=== PATIENT | female | born 1970 | race Caucasian/White ===

== ENCOUNTER 2018-08-07 09:04 | Emergency (ER) | payer OTHER ==
[2018-08-07 09:12] VITALS: TEMP 99.2; BMI 31.8
--- NOTE | 2018-08-07 09:17 | PDOC ---
History of Present Illness - General Chief Complaint: Palpitations Stated Complaint: EMPLOYEE, PALPITATIONS Time Seen by Provider: 08/07/18 09:16 History Source: Patient Exam Limitations: No Limitations - History of Present Illness Initial Comments: 08/07/18 09:45 The patient is a 48F with no PMH who presents to the ER with complaints of palpitations. The patient states that she was watching TV 2 days ago when she developed palpitations as she was sitting down. She states that they lasted for "a few seconds" and then went away. She denies any CP, fever, chills, nausea, vomiting, cough but admits to mild SOB. She has never had this happen before. She admits to 1 cup of coffee in the morning, no energy drinks, and no illicit drug use. She admits to increased stressors. Past History - Past Medical History Allergies/Adverse Reactions: Allergies Allergy/AdvReac Type Severity Reaction Status Date / Time No Known Allergies Allergy Verified 01/19/16 16:57 Home Medications: Ambulatory Orders NK [No Known Home Medication] 08/07/18 COPD: No GI Disorders: Yes (gallstones) Disorders: Yes (H/O kidney stones) - Surgical History Cholecystectomy: Yes - Immunization History Immunization Up to Date: Yes - Suicide/Smoking/Psychosocial Hx Smoking History: Never smoked Hx Alcohol Use: No Drug/Substance Use Hx: No Review of Systems - Review of Systems Able to Perform ROS?: Yes Comments:: 08/07/18 09:54 GENERAL/CONSTITUTIONAL: No fever or chills. No weakness. HEAD, EYES, EARS, NOSE AND THROAT: No change in vision. No ear pain or discharge. No sore throat. CARDIOVASCULAR: Positive for palpitations. No chest pain or lightheadedness. RESPIRATORY: Positive for mild SOB. No cough, wheezing, or hemoptysis. GASTROINTESTINAL: No nausea, vomiting, diarrhea, constipation, or abdominal pain. GENITOURINARY: No dysuria, frequency, hematuria, or change in urination. MUSCULOSKELETAL: No joint or muscle swelling or pain. No neck or back pain. SKIN: No rash or lesions. NEUROLOGIC: No headache, numbness, tingling, focal weakness, loss of consciousness, or change in strength/sensation. ENDOCRINE: No increased thirst. No abnormal weight change. HEMATOLOGIC/LYMPHATIC: No anemia, easy bleeding, or history of blood clots. ALLERGIC/IMMUNOLOGIC: No hives or skin allergy. Is the patient limited Lithuanian proficient: No *Physical Exam - Vital Signs Last Vital Signs Temp Pulse Resp BP Pulse Ox 99.2 F 76 18 153/91 99 08/07/18 09:08 08/07/18 09:08 08/07/18 09:08 08/07/18 09:08 08/07/18 09:08 Heart Score/ECG Review #1 General ECG Interpretation: Sinus Rhythm, Normal Rate, Normal Intervals, No acute ischemic changes Compared to previous ECG there are: Changes noted 08/07/18 09:56 NSR vent rate 75 DC 152 QRS 96 QTc 419 Incomplete RBBB No STD or ELSY No signs of acute ischemia C/w prior in 2012 ED Treatment Course - LABORATORY CBC & Chemistry Diagram: 08/07/18 09:45 08/07/18 10:00 Medical Decision Making - Medical Decision Making 08/07/18 09:57 THe patient is a 48F with no PMH who presents with palpitations. Concern for ACS vs underlying arrhythmia. EKG unremarkable. C/w 2012 she has a new incomplete RBBB. Pending labs and CXR. PERC negative. Pt will likely require outpt cardiology f/u with new incomplete RBBB. 08/07/18 10:32 Preliminary read of CXR is negative for acute pathology. 08/07/18 10:56 Labs WNL including trop and TSH. Will d/c with PCP and cardiology f/u. *DC/Admit/Observation/Transfer Diagnosis at time of Disposition: Palpitations - Discharge Dispostion Disposition: HOME Condition at time of disposition: Stable Decision to Admit order: No - Referrals Referrals: Willian Patino MD [Staff Physician] - Lakshmi Herbert MD [Staff Physician] - - Patient Instructions Printed Discharge Instructions: DI for Palpitations Additional Instructions: Por favor, anika un seguimiento con garcia mdico de atencin primaria en 2-3 cobian. Por favor, siga con el Dr. Patino dentro de 1 semana. Por favor regrese a la cassidy de emergencia si tiene signos o sntomas de dolor en el pecho, dificultad para respirar, fiebre incontrolable, escalofros, nuseas, vmitos, entumecimiento, hormigueo o debilidad en cualquier parte de garcia cuerpo, cambios en la visin o dificultad para hablar. Por favor regrese a la cassidy de emergencias si los sntomas persisten, empeoran o surgen nuevos sntomas. Please follow up with your primary care physician in 2-3 days. Please follow up with Dr. Patino within 1 week. Please return to the ER if you have any signs or symptoms of chest pain, shortness of breath, uncontrollable fever, chills, nausea, vomiting, numbness, tingling, or weakness in any part of your body, changes in vision, or slurred speech. Please return to the ER if symptoms persist, worsen, or new symptoms arise. Print Language: BANGLADESHI - Post Discharge Activity
[2018-08-07 09:54] LABS: BASO % 0.5 % (0-2.0); EOS % 1.5 % (0-4.5); HEMATOCRIT 44.3 % (32.4-45.2); HEMOGLOBIN 14.8 GM/dL (10.7-15.3); LYMPH % 25.3 % (8-40); MCH 30.9 pg (25.7-33.7); MCHC 33.4 g/dl (32.0-36.0); MEAN CELL VOLUME 92.4 fl (80-96); MEAN PLT VOLUME 7.9 fl (7.5-11.1); MONO % 9.4 % (3.8-10.2); NEUT % 63.3 % (42.8-82.8); PLATELET COUNT 267 K/MM3 (134-434); RBC 4.79 M/mm3 (3.60-5.2); RDW 12.6 % (11.6-15.6); WHITE BLOOD COUNT 8.8 K/mm3 (4.0-10.0)
[2018-08-07 10:11] LABS: INR 0.93 (0.83-1.09); PROTHROMBIN TIME (PATIENT) 10.5 SEC (9.7-13.0)
[2018-08-07 10:25] LABS: ALBUMIN 3.7 g/dl (3.4-5.0); ANION GAP 8 MMOL/L (8-16); BILIRUBIN,TOTAL 0.5 mg/dL (0.2-1.0); BLOOD UREA NITROGEN 15 mg/dL (7-18); CALCIUM 9.2 mg/dL (8.5-10.1); CHLORIDE 108 mmol/L (98-107); CO2 24 mmol/L (21-32); CREATININE 0.7 mg/dL (0.55-1.02); GLUCOSE,RANDOM 123 mg/dL (74-106); POTASSIUM 3.9 mmol/L (3.5-5.1); SGOT/AST 15 U/L (15-37); SGPT/ALT 36 U/L (13-61); SODIUM 140 mmol/L (136-145); TOT PROT 7.5 g/dl (6.4-8.2)
[2018-08-07 10:27] LABS: ALK PHOS 89 U/L (45-117)
[2018-08-07 11:19] VITALS: BP 116/79; PULSE 75
--- NOTE | 2018-08-07 12:56 | PDOC ---
Attending Attestation - Resident Resident Name: Ezra Bee - ED Attending Attestation I have performed the following: I have examined & evaluated the patient, The case was reviewed & discussed with the resident, I agree w/resident's findings & plan, Exceptions are as noted - HPI HPI: 08/07/18 12:54 Agree with residents HPI - Physicial Exam PE: 08/07/18 12:54 Agree with residents PE - Medical Decision Making 08/07/18 12:57 48 y/o no PMH presents with palpitations no chest pain. Heart score 1 nonischemic EKG troponin negative TSH normal. PERC negative for PE. No acute findings on patient's physical exam laboratory analysis within normal limits patient will follow up with cardiology this week small right bundle- branch block noted on EKG discussed with patient and she will follow-up with cardiology. Findings, need for follow-up and strict return instructions discussed with patient. Heart Score/ECG Review - History History: Slightly suspicious - Electrocardiogram EKG: Normal - Age Age: 45-65 - Risk Factors Based on the list above the patient has:: No risk factors known - Troponin Troponin: </= normal limit - Score Heart Score - Total: 1 - ECG Impressions Comment:: 08/07/18 12:54 EKG performed at 920 demonstrates normal sinus rhythm incomplete right bundle- branch block and no ST elevations or T-wave inversions. Interpreted by me.
--- NOTE | 2018-08-07 15:37 | EKG ---
Test Reason : Blood Pressure : / mmHG Vent. Rate : 070 BPM Atrial Rate : 070 BPM P-R Int : 152 ms QRS Dur : 096 ms QT Int : 388 ms P-R-T Axes : 051 -25 051 degrees QTc Int : 419 ms NORMAL SINUS RHYTHM INCOMPLETE RIGHT BUNDLE BRANCH BLOCK POSSIBLE INFERIOR INFARCT (CITED ON OR BEFORE 24-MAR-2013) ABNORMAL ECG WHEN COMPARED WITH ECG OF 24-MAR-2013 08:50, INCOMPLETE RIGHT BUNDLE BRANCH BLOCK IS NOW PRESENT Confirmed by COLTEN CARLOS MD ([id number]) on 08/07/2018 3:36:56 PM Referred By: Confirmed By:COLTEN CARLOS MD
== END 2018-08-07 11:19 | disposition home or self-care (01) ==
LOC: JER 09:04
DX: R00.2 Palpitations (principal)
CPT/HCPCS: 36415; 71046-TC-FY; 80053; 82550; 84443; 84484; 84703; 85025; 85610; 93005; 93010; 99284-25

== ENCOUNTER 2018-09-19 19:03 | Emergency (ER) | payer OTHER ==
[2018-09-19 19:12] VITALS: BMI 31.8
--- NOTE | 2018-09-19 19:15 | PDOC ---
Rapid Medical Evaluation Time Seen by Provider: 09/19/18 19:11 Medical Evaluation: Allergies Allergy/AdvReac Type Severity Reaction Status Date / Time No Known Allergies Allergy Verified 01/19/16 16:57 09/19/18 19:11 Pt presents to the ED for high blood pressure. Pt states she has been taking it at home and it was 158/100 and 160/98. Currently she admits to palpitations and had a headache earlier this morning. Surgical HX: hysterectomy Exam: BP 199/90, RRR Orders: Labs, EKG, IV Pt to proceed to ED for further evaluation Discharge Disposition - Diagnosis Palpitations Hypertension Qualifiers: Hypertension type: unspecified Qualified Code(s): I10 - Essential (primary) hypertension - Referrals - Patient Instructions - Post Discharge Activity
[2018-09-19] MEDS ORDERED: NITROGLYCERIN SUBLINGUAL 1/150 0.4 MG TAB SL ONE (19:34)
[2018-09-19] MEDS ORDERED: ACETAMINOPHEN 325 MG TABLET (FP) PO ONE (19:35)
[2018-09-19] MEDS ORDERED: VALSARTAN 40 MG TABLET (FP) PO ONE (19:44)
--- NOTE | 2018-09-19 19:45 | PDOC ---
Attending Attestation - Resident Resident Name: DanielMoni - ED Attending Attestation I have performed the following: I have examined & evaluated the patient, The case was reviewed & discussed with the resident, I agree w/resident's findings & plan <Viviana Gutierres - Last Filed: 09/19/18 19:44> - HPI HPI: 09/19/18 19:55 The patient is a 48-year-old female with past medical history significant for elevated cholesterol (diagnosed 2 months ago) presents to the emergency department with elevated blood pressure and palpitations. The patient reports shes been checking her blood pressure at home, which was noted to be elevated systolic to the 150-160 and diastolic to the 100s. The patient reports associated symptoms of a headache. The patient was seen at the ED couple of weeks prior for palpitations, was scheduled to follow up with a tableau report developer. The patient reports she has an appointment with Dr. Patino on Saturday. Denies chest pain, shortness of breath, leg swelling, blurry vision, hx of elevated blood pressure. Allergies: NKA Social history: Patient is an employee at [employer]. No past or present use of tobacco, alcohol or recreational drugs. Surgical history: Hysterectomy PCP: Dr. Sidney Herbert. - Physicial Exam PE: 09/19/18 19:56 GENERAL: (+) Overweight, afebril. Awake, alert, and fully oriented, in no acute distress HEAD: No signs of trauma EYES: PERRLA, EOMI, sclera anicteric, conjunctiva clear ENT: Auricles normal inspection, hearing grossly normal, nares patent, oropharynx clear without exudates. Moist mucosa NECK: Normal ROM, supple, no lymphadenopathy, JVD, or masses LUNGS: Breath sounds equal, clear to auscultation bilaterally. No wheezes, and no crackles HEART: Pulse regular. Regular rate and rhythm, normal S1 and S2, no murmurs, rubs or gallops ABDOMEN: Soft, nontender, no flank pain, normoactive bowel sounds. No guarding , no rebound. No masses EXTREMITIES: Moving all extremity. Normal range of motion, no edema. No clubbing or cyanosis. No cords, erythema, or tenderness NEUROLOGICAL: Cranial nerves II through XII grossly intact. Normal speech, normal gait SKIN: Warm, Dry, normal turgor, no rashes or lesions noted. - Medical Decision Making 09/19/18 19:56 Documentation prepared by Shannen Vanegas, acting as medical device assembler for Viviana Gutierres MD. <Shannen Vanegas - Last Filed: 09/19/18 20:18>
--- NOTE | 2018-09-19 19:48 | PDOC ---
History of Present Illness - General Chief Complaint: Blood Pressure Problem Stated Complaint: BLOOD PRESSURE PROBLEM Time Seen by Provider: 09/19/18 19:11 History Source: Patient - History of Present Illness Initial Comments: 09/19/18 20:34 This is a 48 year old female with no significant past medical history, who presents with palpitations and elevated blood pressure taken at home, 160/90. Patient states that she has been taking her blood pressure at home and it has remained elevated. She endorses slight headache at home that has now resolved. She denies blurry vision, diaphoresis, chest pain, shortness of breath, leg swelling. Palpitations are intermittent, at rest and with exertion. She was recently here at [facility] for the same symptoms, ancillary studies negative for acute pathology. She has a follow up appointment with Dr. Patino on Saturday. PMHx: palpitations ROS: as noted Surgical hx: hysterectomy, kidney stone removal, cholecystectomy Social hx: denies alcohol, tobacco Allergies: none Past History - Past Medical History Allergies/Adverse Reactions: Allergies Allergy/AdvReac Type Severity Reaction Status Date / Time No Known Allergies Allergy Verified 09/19/18 19:12 Home Medications: Ambulatory Orders Valsartan [Diovan] 40 mg PO DAILY #30 tablet 09/19/18 COPD: No GI Disorders: Yes (gallstones) Disorders: Yes (H/O kidney stones) - Surgical History Abdominal Surgery: Yes Cholecystectomy: Yes - Immunization History Immunization Up to Date: Yes - Suicide/Smoking/Psychosocial Hx Smoking History: Never smoked Hx Alcohol Use: No Drug/Substance Use Hx: No Review of Systems - Review of Systems Comments:: 09/19/18 20:40 ROS: GENERAL/CONSTITUTIONAL: No fever or chills. No weakness. HEAD, EYES, EARS, NOSE AND THROAT: No change in vision. No ear pain or discharge. No sore throat. CARDIOVASCULAR: No chest pain or shortness of breath, +palpitations RESPIRATORY: No cough, wheezing, or hemoptysis. GASTROINTESTINAL: No nausea, vomiting, diarrhea or constipation. GENITOURINARY: No dysuria, frequency, or change in urination. MUSCULOSKELETAL: No joint or muscle swelling or pain. No neck or back pain. SKIN: No rash NEUROLOGIC: No headache, vertigo, loss of consciousness, or change in strength/ sensation. ENDOCRINE: No increased thirst. No abnormal weight change HEMATOLOGIC/LYMPHATIC: No anemia, easy bleeding, or history of blood clots. ALLERGIC/IMMUNOLOGIC: No hives or skin allergy. *Physical Exam - Vital Signs Last Vital Signs Temp Pulse Resp BP Pulse Ox 98.6 F 72 18 199/90 H 99 09/19/18 19:10 09/19/18 19:10 09/19/18 19:10 09/19/18 19:10 09/19/18 19:10 - Physical Exam Comments: 09/19/18 20:41 PE: GENERAL: Awake, alert, and fully oriented, in no acute distress HEAD: No signs of trauma, normocephalic, atraumatic EYES: PERRLA, EOMI, sclera anicteric, conjunctiva clear ENT: Auricles normal inspection, hearing grossly normal, nares patent, oropharynx clear without exudates. Moist mucosa NECK: Normal ROM, supple, no lymphadenopathy, JVD, or masses LUNGS: No distress, speaks full sentences, clear to auscultation bilaterally HEART: Regular rate and rhythm, normal S1 and S2, no murmurs, rubs or gallops, peripheral pulses normal and equal bilaterally. ABDOMEN: Soft, nontender, normoactive bowel sounds. No guarding, no rebound. No masses EXTREMITIES : Normal inspection, Normal range of motion, no edema. No clubbing or cyanosis. NEUROLOGICAL: Cranial nerves II through XII grossly intact. Normal speech, normal gait, no focal sensorimotor deficits SKIN: Warm, Dry, normal turgor, no rashes or lesions noted ED Treatment Course - LABORATORY CBC & Chemistry Diagram: 09/19/18 20:33 09/19/18 20:33 Medical Decision Making - Medical Decision Making 09/19/18 21:20 This is a 48 year old female without significant medical history, who presents with palpitations and elevated blood pressure, hypertensive urgency. Recorded bp here 199/100; given nitroglycerin with adequate response; systolic 150s, diastolic 80s. #hypertensive urgency -nitrox1 -diovan x1; will prescribe as outpatient -has appt with Dr. Patino on Saturday #palpitations -hx incomplete RBBB -NSR; no st/t wave changes Disposition: will dc home; f/u cardiology 09/19/18 21:30 *DC/Admit/Observation/Transfer Diagnosis at time of Disposition: Palpitations, Hypertensive urgency Hypertension Qualifiers: Hypertension type: unspecified Qualified Code(s): I10 - Essential (primary) hypertension - Discharge Dispostion Disposition: HOME - Prescriptions Prescriptions: Valsartan [Diovan] 40 mg PO DAILY #30 tablet - Referrals Referrals: Lakshmi Herbert MD [Primary Care Provider] - - Patient Instructions Additional Instructions: Mrs Valero, you have been diagnoses with hypertension. Please take you medication as prescribed and follow up with your primary and wood tank erector. If you experience any worsening of symptoms, chest pain, shortness of breath, please return to the emergency room. - Post Discharge Activity Forms/Work/School Notes: HIV Follow [facility]
[2018-09-19 20:43] LABS: BASO % 1.2 % (0-2.0); EOS % 1.9 % (0-4.5); HEMATOCRIT 41.8 % (32.4-45.2); LYMPH % 33.1 % (8-40); MCH 30.6 pg (25.7-33.7); MCHC 33.5 g/dl (32.0-36.0); MEAN CELL VOLUME 91.4 fl (80-96); MEAN PLT VOLUME 8.2 fl (7.5-11.1); MONO % 7.5 % (3.8-10.2); NEUT % 56.3 % (42.8-82.8); PLATELET COUNT 301 K/MM3 (134-434); RBC 4.58 M/mm3 (3.60-5.2); RDW 12.7 % (11.6-15.6); WHITE BLOOD COUNT 8.8 K/mm3 (4.0-10.0)
[2018-09-19] MEDS ORDERED: ACETAMINOPHEN 325 MG TABLET (FP) ONE (20:43)
[2018-09-19] MEDS ORDERED: VALSARTAN 80 MG TABLET (UD) ONE (20:43)
[2018-09-19 21:07] LABS: URINE APPEARANCE CLEAR; URINE BILIRUBIN NEGATIVE (<2.0 mg/dL); URINE COLOR STRAW; URINE GLUCOSE (UA) NEGATIVE (NEGATIVE); URINE KETONE NEGATIVE (NEGATIVE); URINE LEUK ESTERASE NEGATIVE (NEGATIVE); URINE NITRITE NEGATIVE (NEGATIVE); URINE PROTEIN NEGATIVE (NEGATIVE); URINE UROBILINOGEN NEGATIVE mg/dL (0.2-1.0)
[2018-09-19 21:14] LABS: INR 0.92 (0.83-1.09); PROTHROMBIN TIME (PATIENT) 10.8 SEC (9.7-13.0)
[2018-09-19 21:16] LABS: ALBUMIN 3.7 g/dl (3.4-5.0); ALK PHOS 91 U/L (45-117); ANION GAP 10 MMOL/L (8-16); BILIRUBIN,TOTAL 0.6 mg/dL (0.2-1); BLOOD UREA NITROGEN 14 mg/dL (7-18); CALCIUM 8.7 mg/dL (8.5-10.1); CHLORIDE 106 mmol/L (98-107); CO2 27 mmol/L (21-32); CREATININE 0.8 mg/dL (0.55-1.3); GLUCOSE,RANDOM 109 mg/dL (74-106); MAGNESIUM 2.1 mg/dL (1.8-2.4); POTASSIUM 3.8 mmol/L (3.5-5.1); SGOT/AST 15 U/L (15-37); SGPT/ALT 33 U/L (13-61); SODIUM 143 mmol/L (136-145); TOT PROT 7.2 g/dl (6.4-8.2)
[2018-09-19 23:06] VITALS: PULSE 74
[2018-09-19 23:08] VITALS: BP 157/94; TEMP 97
== END 2018-09-19 21:50 | disposition home or self-care (01) ==
LOC: JER 19:03
DX: I16.0 Hypertensive urgency (principal); R00.2 Palpitations; E78.00 Pure hypercholesterolemia, unspecified
CPT/HCPCS: 36415; 71046-TC-FY; 80053; 81003; 82550; 83735; 84443; 84484; 85025; 85610; 87086; 87186; 99282-25

== ENCOUNTER 2024-11-21 06:59 | Inpatient (IN) | payer OTHER ==
[2024-11-21] MEDS ORDERED: KETOROLAC TROMETHAMINE 15 MG/ML VIAL ONE (07:48)
[2024-11-21] MEDS: SODIUM CHLORIDE 0.9% 500 ML INFUS.BAG IV ONE (07:58)
[2024-11-21] MEDS: KETOROLAC TROMETHAMINE 15 MG/ML VIAL IVPUSH ONE (07:58)
[2024-11-21 08:07] LABS: BASO % 0.4 % (0-2.0); HEMATOCRIT 44.4 % (32.4-45.2); HEMOGLOBIN 14.7 GM/dL (10.7-15.3); LYMPH % 11.5 % (8-40); MCH 30.2 pg (25.7-33.7); MCHC 33.2 g/dl (32.0-36.0); MEAN PLT VOLUME 8.8 fl (7.5-11.1); MONO % 3.4 % (3.8-10.2); NEUT % 84.7 % (42.8-82.8); PLATELET COUNT 248 10^3/uL (134-434); RBC 4.88 M/mm3 (3.60-5.2); RDW 13.3 % (11.6-15.6); WHITE BLOOD COUNT 10.8 K/mm3 (4.0-10.0)
[2024-11-21 08:08] LABS: HCG,QUALITATIVE URINE Negative
[2024-11-21 08:14] LABS: EPI CELLS >36 /uL (0-25.1); HYALINE CASTS 1 /uL (0-3.1); PH,URINE 5.5 (5.0-8.0); URINE APPEARANCE CLEAR; URINE BACTERIA 197 /uL (0-1359); URINE BILIRUBIN NEGATIVE (NEGATIVE); URINE COLOR YELLOW; URINE GLUCOSE (UA) NEGATIVE (NEGATIVE); URINE KETONE NEGATIVE (NEGATIVE); URINE LEUK ESTERASE NEGATIVE (NEGATIVE); URINE NITRITE NEGATIVE (NEGATIVE); URINE PROTEIN 1+ (NEGATIVE); URINE RBC 8 /uL (0-23.9); URINE UROBILINOGEN 0.2 mg/dL (0.2-1.0); URINE WBC 19 /uL (0-25.8)
[2024-11-21 08:18] LABS: CALCIUM 9.7 mg/dL (8.5-10.1); POTASSIUM 4.4 mmol/L (3.5-5.1)
[2024-11-21 08:19] LABS: BLOOD UREA NITROGEN 16.7 mg/dL (7-18)
[2024-11-21 08:22] LABS: CREATININE 1.2 mg/dL (0.55-1.3)
[2024-11-21 08:23] LABS: BILIRUBIN,TOTAL 1.2 mg/dL (0.2-1)
[2024-11-21 08:24] LABS: TOT PROT 7.7 g/dl (6.4-8.2)
[2024-11-21] MEDS ORDERED: MORPHINE SULFATE 2 MG/ML SYRINGE ONE (10:04)
[2024-11-21 10:13] LABS: URINE CRYSTALS CA OXALATE 1+ /hpf
[2024-11-21] MEDS: morphine SULFATE 4 MG/ML VIAL IVPUSH ONE (10:13)
[2024-11-21] MEDS ORDERED: CEFTRIAXONE 1 G/50 ML PREMIX 50 ML IVPB ONE (13:12)
[2024-11-21] MEDS: CEFTRIAXONE 1 GM in DEXTROSE 5%-WATER - 100 ML IVPB ONE (13:17)
[2024-11-21] MEDS: SODIUM CHLORIDE 1,000 ML IV SCH (13:17)
[2024-11-21] MEDS ORDERED: ACETAMINOPHEN 325 MG TABLET (FP) ONE (13:59)
[2024-11-21 14:00] LABS: INR 0.97 (0.83-1.09); PROTHROMBIN TIME (PATIENT) 11.2 SEC (9.7-13.0)
[2024-11-21] MEDS: ACETAMINOPHEN 500 MG TABLET (FP) PO PRN (14:06)
[2024-11-21 16:29] VITALS: BMI 32.1
[2024-11-21] MEDS: TAMSULOSIN HCL 0.4 MG CAP PO ONE (16:44)
[2024-11-21] MEDS: ENALAPRIL MALEATE 10 MG TABLET PO SCH (17:20)
[2024-11-21] MEDS: ONDANSETRON 4 MG/2 ML VIAL IVPUSH ONE (20:48)
[2024-11-21] MEDS ORDERED: LISINOPRIL 20 MG TABLET PO SCH (22:00)
[2024-11-22] MEDS ORDERED: SUCCINYLCHOLINE CHLORIDE 200 MG/10 ML SYRINGE ONE (09:05)
[2024-11-22] MEDS ORDERED: DEXAMETHASONE SOD PHOSPHATE 4 MG/1 ML VIAL ONE (09:05)
[2024-11-22] MEDS ORDERED: ONDANSETRON 4 MG/2 ML VIAL ONE (09:05)
[2024-11-22] MEDS ORDERED: PROPOFOL 20 ML ONE (09:05)
[2024-11-22] MEDS ORDERED: LIDOCAINE HCL/PF 2% SDV 5ML VIAL ONE (09:05)
[2024-11-22] MEDS ORDERED: MIDAZOLAM HCL 2 MG/2 ML SINGLE DOSE VIAL ONE (09:05)
[2024-11-22] MEDS ORDERED: ceFAZolin SODIUM 1 GM VIAL ONE (09:25)
[2024-11-22] MEDS: ceFAZolin SODIUM 1 GM VIAL IVPB ONE (09:28)
[2024-11-22] MEDS: IOHEXOL 180 MG/1 ML ML IJ ONE (09:35)
[2024-11-22] MEDS ORDERED: oxyCODONE HCL 5 MG TABLET PO PRN ×2 (09:52→10:03)
[2024-11-22] MEDS: LACTATED RINGERS SOLUTION 1,000 ML IV SCH ×2 (10:31→11:07)
[2024-11-22] MEDS: CEFTRIAXONE 1 G/50 ML PREMIX 50 ML IVPB SCH (11:05)
[2024-11-22] MEDS: SODIUM CHLORIDE 1,000 ML IV SCH (11:09)
[2024-11-22 11:50] LABS: BASO % 0.1 % (0-2.0); EOS % 0.1 % (0-4.5); HEMATOCRIT 40.4 % (32.4-45.2); HEMOGLOBIN 13.3 GM/dL (10.7-15.3); LYMPH % 8.6 % (8-40); MCH 30.1 pg (25.7-33.7); MEAN CELL VOLUME 91.1 fl (80-96); NEUT % 86.2 % (42.8-82.8); PLATELET COUNT 230 10^3/uL (134-434); RBC 4.43 M/mm3 (3.60-5.2); RDW 13.6 % (11.6-15.6); WHITE BLOOD COUNT 13.3 K/mm3 (4.0-10.0)
[2024-11-22 12:06] LABS: POTASSIUM 3.5 mmol/L (3.5-5.1)
[2024-11-22 12:11] LABS: BLOOD UREA NITROGEN 12.4 mg/dL (7-18); CALCIUM 9.2 mg/dL (8.5-10.1)
[2024-11-22 12:14] LABS: CREATININE 1.5 mg/dL (0.55-1.3)
[2024-11-22 12:16] LABS: BILIRUBIN,TOTAL 1.4 mg/dL (0.2-1); TOT PROT 6.4 g/dl (6.4-8.2)
[2024-11-22 12:39] LABS: ALBUMIN 3.2 g/dl (3.4-5.0)
[2024-11-22 14:15] VITALS: RESP 18
[2024-11-23] MEDS: ACETAMINOPHEN 500 MG TABLET (FP) PO PRN (05:29)
[2024-11-23 06:51] VITALS: BP 131/68; PULSE 60; TEMP 99
[2024-11-23] MEDS ORDERED: ENALAPRIL MALEATE 10 MG TABLET PO SCH (10:00)
[2024-11-23] MEDS ORDERED: CEFTRIAXONE 1 G/50 ML PREMIX 50 ML IVPB SCH (10:00)
== END 2024-11-23 09:34 | disposition left against medical advice (07) | DRG 661 ==
LOC: JER 06:59 → JERBED 12:34 → J5S 15:52
PROVIDERS: ADMIT Internal Medicine; ATTEND Internal Medicine
PROC: 0T768DZ Dilation of Right Ureter with Intraluminal Device, Via Natural or Artificial Opening Endoscopic (ICD-10-PCS; 2024-11-22)
PROC: 0TC68ZZ Extirpation of Matter from Right Ureter, Via Natural or Artificial Opening Endoscopic (ICD-10-PCS; principal; 2024-11-22 09:00)
DX: N13.2 Hydronephrosis with renal and ureteral calculous obstruction (principal); I10 Essential (primary) hypertension
CPT/HCPCS: 36415; 74176-TC; 76000-TC-FY; 80053; 81003; 83690; 84703; 85025; 85610; 85730; 86850; 86900; 86901; 87086; 93005; 93010; 94760; 99285-25; C2617